=== PATIENT | female | born 1980 | race Caucasian/White ===

== ENCOUNTER 2021-12-07 07:43 | Outpatient (CLI) | payer BC | END 2021-12-07 07:44 | disposition home or self-care (01) | LOC: CSHLAB 07:43 | PROVIDERS: ATTEND Obstetrics & Gynecology | DX: Z01.812 Encounter for preprocedural laboratory examination (principal); Z20.822 Contact with and (suspected) exposure to COVID-19; O02.1 Missed abortion | CPT/HCPCS: 85027; 86850; 86900; 86901; 87811 ==

== ENCOUNTER 2021-12-09 05:47 | Day surgery (SDC) | payer BC ==
[2021-12-07 10:05] LABS: Hemoglobin 12.5 g/dL (12.0-15.5); Mean Corpuscular Hemoglobin 32.3 pg (27.0-33.0); Mean Corpuscular Volume 92.2 fl (81.6-98.3); Mean Platelet Volume 9.9 fl (7.4-10.4); Platelet Count 393 10x3/uL (150-450); RBC Distribution Width 11.7 % (11.5-14.5); Red Blood Cell (RBC) Count 3.87 10x6/uL (3.90-5.03); White Blood Cell (WBC) Count 5.7 10x3/uL (3.5-10.5)
[2021-12-08 09:12] VITALS: BMI 23.0
[2021-12-09] MEDS ORDERED: Gabapentin 300 MG CAP ONE (06:26)
[2021-12-09] MEDS ORDERED: CeleCOXIB 100 MG CAP ONE (06:27)
[2021-12-09] MEDS ORDERED: Methylergonovine 0.2 MG/ML VIAL ONE (07:09)
[2021-12-09] MEDS ORDERED: Misoprostol 200 MCG TAB ONE (07:09)
[2021-12-09] MEDS ORDERED: Famotidine/PF 20 mg/2ml Vial ONE (07:10)
[2021-12-09] MEDS ORDERED: PROPOFOL 20 ML ONE (07:12)
[2021-12-09] MEDS ORDERED: Fentanyl 100 MCG/2 ML VIAL ONE (07:12)
[2021-12-09] MEDS ORDERED: Dexamethasone 20 MG/5 ML VIAL ONE (07:17)
[2021-12-09] MEDS ORDERED: Ondansetron PF 4 MG/2 ML Vial ONE (07:17)
[2021-12-09] MEDS ORDERED: Dexmedetomidine 200 MCG/2 ML VIAL ONE (07:18)
[2021-12-09] MEDS ORDERED: Midazolam HCl 2 mg/2 ml Vial ONE (07:18)
[2021-12-09] MEDS ORDERED: CEFAZOLIN 2 GM VIAL ONE (07:40)
[2021-12-09] MEDS ORDERED: Glycopyrrolate 0.2 MG/ML 5 ML SYRINGE ONE (07:57)
[2021-12-09] MEDS ORDERED: ePHEDrine Sulfate 50 MG/10 ML VIAL ONE (08:02)
[2021-12-09] MEDS ORDERED: Ketorolac Tromethamine 30 MG/ML VIAL ONE (08:20)
== END 2021-12-09 10:15 | disposition home or self-care (01) ==
LOC: CSHSDC 05:47
PROVIDERS: ATTEND Obstetrics & Gynecology
PROC: 10D17Z9 Manual Extraction of Products of Conception, Retained, Via Natural or Artificial Opening (ICD-10-PCS; principal; 2021-12-09)
DX: O02.1 Missed abortion (principal); Z79.899 Other long term (current) drug therapy; Z88.8 Allergy status to other drugs, medicaments and biological substances; Z20.822 Contact with and (suspected) exposure to COVID-19
CPT/HCPCS: 85027; 86850; 86900; 86901; 87811; 88305; J0690; J1100; J1885; J2210; J2250; J2405; J2704; J3010; S0028

== ENCOUNTER 2023-01-21 05:34 | Inpatient (IN) | payer BC ==
[2023-01-21 06:15] VITALS: BMI 27.4
[2023-01-21] MEDS ORDERED: HYDROcodone/Acetaminophen 5/325 mg Tablet PO PRN ×2 (07:16)
[2023-01-21] MEDS ORDERED: Lidocaine 1% (PF) 30 ML VIAL SC PRN (07:16)
[2023-01-21] MEDS ORDERED: hydrALAZINE 20 MG/ML VIAL SLOW IVP PRN (07:16)
[2023-01-21] MEDS ORDERED: Methylergonovine 0.2 MG/ML VIAL IM PRN (07:16)
[2023-01-21] MEDS ORDERED: Misoprostol 200 MCG TAB PR PRN (07:16)
[2023-01-21] MEDS ORDERED: Carboprost 250 MCG/ML AMP IM PRN (07:16)
[2023-01-21] MEDS ORDERED: fentaNYL 50 mcg/mL 1 mL Vial SLOW IVP PRN (07:16)
[2023-01-21] MEDS ORDERED: Oxytocin 30 units/NS 500 ML 500 ML IV SCH ×2 (07:16)
[2023-01-21] MEDS ORDERED: Ondansetron PF 4 MG/2 ML Vial IVP PRN (07:16)
[2023-01-21] MEDS ORDERED: Diphenoxylate HCl/Atropine Tablet PO PRN ×2 (07:16)
[2023-01-21] MEDS ORDERED: Promethazine HCl 25 MG/ML VIAL IM PRN (07:16)
[2023-01-21] MEDS ORDERED: Tranexamic Acid 1,000 MG/10 ML VIAL IVP PRN (07:16)
[2023-01-21] MEDS ORDERED: Acetaminophen 500 MG TAB PO PRN (07:16)
[2023-01-21 07:56] LABS: Hematocrit 32.4 % (34.9-44.5); Hemoglobin 11.1 g/dL (12.0-15.5); Mean Corpuscular HGB CONC 34.3 g/dL (32.0-36.0); Mean Corpuscular Hemoglobin 31.9 pg (27.0-33.0); Mean Corpuscular Volume 93.1 fl (81.6-98.3); Mean Platelet Volume 10.2 fl (7.4-10.4); Platelet Count 393 10x3/uL (150-450); RBC Distribution Width 12.1 % (11.5-14.5); Red Blood Cell (RBC) Count 3.48 10x6/uL (3.90-5.03); White Blood Cell (WBC) Count 8.5 10x3/uL (3.5-10.5)
[2023-01-21] MEDS: Misoprostol 100 MCG TAB VAG SCH ×3 (07:59→17:28)
[2023-01-21] MEDS ORDERED: Bupivacaine 0.25% HCL 30 ML VIAL ONE (08:00)
[2023-01-21 08:20] LABS: Syphilis Antibody Nonreactive (Nonreactive); Syphilis Antibody Index 0.04 S/CO (<1.00 Non-Reactive)
[2023-01-21 08:48] LABS: HBSAg Index 0.15 S/CO (0-0.99); Hep B Surf Ag - L&D Non-Reactive S/CO (NonReactive)
[2023-01-22] MEDS: Lactated Ringer's 1,000 ML IV SCH ×2 (00:50→16:21)
[2023-01-22] MEDS ORDERED: fentaNYL/Ropivacaine Epidural 100 ML ONE (07:51)
[2023-01-22] MEDS ORDERED: Moisturizing Cream (Eucerin) 113 GM JAR TOP PRN (09:30)
[2023-01-22] MEDS ORDERED: diphenhydrAMINE 50 MG/ML VIAL IVP PRN (09:30)
[2023-01-22] MEDS ORDERED: fentaNYL 2 mcg/Ropivacaine 0.2% Epidural 100 ML CADD EPIDURAL SCH (09:30)
[2023-01-22] MEDS ORDERED: Lactated Ringer's 500 ML IV PRN (09:30)
[2023-01-22] MEDS ORDERED: Communication Order-Pharmacy FS SCH (09:30)
[2023-01-22] MEDS ORDERED: Naloxone HCl 0.4 mg/ml Vial IVP PRN ×2 (09:30)
[2023-01-22] MEDS ORDERED: ePHEDrine Sulfate 50 MG/10 ML VIAL SLOW IVP PRN (09:30)
[2023-01-22] MEDS ORDERED: Promethazine HCl 25 MG/ML VIAL IM PRN (09:30)
[2023-01-22] MEDS ORDERED: Acetaminophen 325 MG TAB PO PRN (09:30)
[2023-01-22] MEDS ORDERED: diphenhydrAMINE 25 MG CAP PO PRN (13:10)
[2023-01-22] MEDS ORDERED: Preparation H Ointment 28 GM TUBE PR PRN (13:10)
[2023-01-22] MEDS ORDERED: Lanolin Ointment 7 GM TUBE TOP PRN (13:10)
[2023-01-22] MEDS ORDERED: traMADol HCl 50 MG TAB PO PRN (13:10)
[2023-01-22] MEDS ORDERED: Benzocaine-Menthol 82.5 ML CAN TOP PRN (13:10)
[2023-01-22] MEDS ORDERED: hydrALAZINE 20 MG/ML VIAL SLOW IVP PRN (13:10)
[2023-01-22] MEDS ORDERED: Boostrix 0.5 ML (Tdap) VIAL (>/=7 yrs of age) IM ONE (13:10)
[2023-01-22] MEDS ORDERED: Milk Of Magnesia 30 ML UDCUP PO PRN (13:10)
[2023-01-22] MEDS ORDERED: Bisacodyl 10 MG SUPP PR PRN (13:10)
[2023-01-22] MEDS: Misoprostol 100 MCG TAB VAG SCH ×2 (16:21→16:22)
[2023-01-22] MEDS: Ibuprofen 800 MG TAB PO SCH ×2 (16:23→17:05)
[2023-01-22] MEDS ORDERED: HYDROcodone/Acetaminophen 5/325 mg Tablet PO PRN (18:45)
[2023-01-22] MEDS: Ferrous Sulfate 325 MG TAB PO SCH (19:01)
[2023-01-22] MEDS: Docusate 100 MG CAP PO SCH (22:05)
[2023-01-23] MEDS: Ibuprofen 800 MG TAB PO SCH ×3 (00:59→09:17)
[2023-01-23] MEDS ORDERED: Acetaminophen 500 MG TAB PO PRN (05:55)
[2023-01-23] MEDS: Ferrous Sulfate 325 MG TAB PO SCH (07:18)
[2023-01-23] MEDS ORDERED: Prenatal Vitamin 1 TAB PO SCH (09:00)
[2023-01-23] MEDS: Docusate 100 MG CAP PO SCH (09:17)
[2023-01-23 11:29] VITALS: BP 109/63; TEMP 98.5
== END 2023-01-23 15:25 | disposition home or self-care (01) | DRG 807 ==
LOC: CSHLD 05:34 → CSHPP 01-22 15:37
PROVIDERS: ADMIT Obstetrics & Gynecology; ATTEND Obstetrics & Gynecology
PROC: 10E0XZZ Delivery of Products of Conception, External Approach (ICD-10-PCS; principal; 2023-01-22)
PROC: 0KQM0ZZ Repair Perineum Muscle, Open Approach (ICD-10-PCS; 2023-01-22)
PROC: 3E033XZ Introduction of Vasopressor into Peripheral Vein, Percutaneous Approach (ICD-10-PCS; 2023-01-22)
DX: O70.1 Second degree perineal laceration during delivery (principal); Z37.0 Single live birth; O09.523 Supervision of elderly multigravida, third trimester; Z3A.39 39 weeks gestation of pregnancy; Z88.8 Allergy status to other drugs, medicaments and biological substances
CPT/HCPCS: 51702; 85027; 86780; 86850; 86900; 86901; 87340; J2590; J7120; S0020